=== PATIENT | male | born 1985 | race Caucasian/White ===

== ENCOUNTER 2019-08-07 11:30 | Emergency (ER) | payer OTHER ==
[~2019-08-07] VITALS: Ht 205.7 cm; Wt 95.3 kg
== END 2019-08-07 18:05 | disposition home or self-care (01) ==
LOC: ER 11:30 → CPU-OBS 12:10 → ER 18:05
DX: R07.89 Other chest pain (principal)
CPT/HCPCS: 93005; G0378; G0379

== ENCOUNTER 2019-10-12 08:54 | Outpatient (CLI) | payer OTHER | END 2019-10-12 09:03 | disposition home or self-care (01) | LOC: SONOGRAMA 08:54 | PROVIDERS: ATTEND General Practice | DX: R10.84 Generalized abdominal pain (principal) ==

== ENCOUNTER 2019-10-19 09:15 | Outpatient (CLI) | payer OTHER | END 2019-10-19 11:00 | disposition home or self-care (01) | LOC: NUCLEAR 09:15 | PROVIDERS: ATTEND General Practice | DX: R42 Dizziness and giddiness (principal); I10 Essential (primary) hypertension; E78.49 Other hyperlipidemia; R51 Headache; J45.909 Unspecified asthma, uncomplicated; R00.2 Palpitations; I67.89 Other cerebrovascular disease ==

== ENCOUNTER 2020-10-18 10:05 | Outpatient (CLI) | payer OTHER | END 2020-10-18 10:07 | disposition home or self-care (01) | LOC: NUCLEAR 10:05 | PROVIDERS: ATTEND Internal Medicine Cardiovascular Disease | DX: G45.1 Carotid artery syndrome (hemispheric) (principal); R07.89 Other chest pain ==

== ENCOUNTER 2021-05-06 16:04 | Emergency (ER) | payer OTHER ==
[~2021-05-06] VITALS: Ht 205.7 cm; Wt 115.7 kg
== END 2021-05-06 18:16 | disposition home or self-care (01) ==
LOC: ER 16:04
DX: R51.9 Headache, unspecified (principal); M79.602 Pain in left arm